=== PATIENT | male | born 1950 | race Hispanic/Latino ===

== ENCOUNTER → 2018-04-08 | Outpatient (CLI) | payer OTHER, MEDICARE | END | disposition home or self-care (01) | LOC: OIH 08:48 | PROVIDERS: ATTEND Family Medicine | DX: I10 Essential (primary) hypertension (principal); L90.5 Scar conditions and fibrosis of skin; Z87.891 Personal history of nicotine dependence; Z86.11 Personal history of tuberculosis | CPT/HCPCS: 71046 ==